=== PATIENT | female | born 1965 ===

== ENCOUNTER → 2021-09-20 13:01 | Outpatient (BNVA) | payer BC, SELFPAY | PROVIDERS: PCP Internal Medicine; Visit Provider Nurse Practitioner Family | DX: Z13.89 Encounter for screening for other disorder (principal) ==

== ENCOUNTER 2021-10-03 09:20 | Outpatient (REF) | payer BC, SELFPAY ==
--- NOTE | ~2021-10-03 | MR_ITS ---
EXAMINATION: MRI OF THE BRAIN WITHOUT CONTRAST CLINICAL INFORMATION: Migraine without aura. COMPARISON: There are no prior studies available for comparison. TECHNIQUE: MRI of the brain was obtained using routine sequences without contrast. FINDINGS: No diffusion abnormalities are identified to suggest an acute or subacute infarct. No mass effect or midline shift is seen. The ventricles and sulci are normal in size. There are a few scattered foci of hyperintense T2 and FLAIR signal in the periventricular subcortical white matter which are nonspecific. No extra-axial fluid collections are seen. The brainstem and cerebellum are normal. No pathologic magnetic susceptibility artifact is identified on the gradient refocused acquisition. The craniovertebral junction, marrow signal, and midline structures are normal. The major intracranial flow-voids at the level of the [place] are preserved. The dural venous sinus flow-voids are maintained. The mastoid air cells and paranasal sinuses are well-aerated. MR/MR head/brain wo con IMPRESSION: 1. There are no acute bleeds or infarcts. No masses are demonstrated. The paranasal sinuses and mastoid air cells are well-aerated. There are a few scattered nonspecific white matter changes.
== END 2021-10-03 09:21 | disposition home or self-care (01) ==
LOC: HO.MRI 09:20
PROVIDERS: Visit Provider Nurse Practitioner Family
DX: G43.009 Migraine without aura, not intractable, without status migrainosus (principal)
CPT/HCPCS: 70551

== ENCOUNTER → 2022-05-04 08:33 | Outpatient (BNVA) | payer BC, SELFPAY | PROVIDERS: PCP Internal Medicine; Visit Provider Nurse Practitioner Family | DX: M54.2 Cervicalgia (principal) ==

== ENCOUNTER 2022-12-27 09:33 | Outpatient (AMB) | payer BC, SELFPAY ==
[2022-12-27 09:37] VITALS: BP 128/82; PULSE 61; O2SAT 97; BMI 25.4
--- NOTE | 2022-12-27 09:37 | A.OFFVIS_ITS ---
Intake Vital Signs 12/27/22 09:37 Height 5 ft 5 in Weight 152 lb 8 oz BMI 25.4 BP 128/82 Blood Pressure Location Rt brachial Position Sitting Pulse 61 Pulse Source Pulse Oximeter Pulse Oximetry (%) 97 Oxygen Delivery Method Room Air Intake Visit Reasons: 4-5m follow up migraines - LVM Intake Note: patient presents for follow up migraines. Patient states my migraines are still the same. I was going to therapy and they stopped so I stopped going but now there back. Allergies No Known Allergies Allergy (Verified 05/04/22 08:42) Medication List - Last Reconciled 12/27/22 by Regi Hensley, CLINIC OFFICE COORDINATOR benzonatate 200 mg PO TID fwxteydtok-hteowltozc-ibz-cod [id number] mg 1 cap PO DAILY PRN fremanezumab-vfrm (Ajovy Syringe) mg subcut levothyroxine 25 mcg PO DAILY propranolol ER 160 mg PO DAILY zolpidem 5 mg PO BEDTIME HPI HPI Comments History of Present Illness Details 57-yr-old female presents for f/u visit. Pt endorses the following interval medical history changes: She suffered a left meniscus tear and underwent surgical repair. She has not been able to exercise in several weeks. She states that her migraine attacks were better after she did PT, however they came back after stopping PT. She wonders about re-trying PT- as she has significant cervical and back tightness. She is currently have 4-5 migraine days per week despite compliance w/ Propranolol and Ajovy. If she is late on her Ajovy by even 2 days, the migraine attacks will worsen. She stopped Mag- not tolerated. She never started Botox. [facility] Surgical History H/O knee surgery H/O: hysterectomy Social History Household Members: Spouse Alcohol intake: never Patient Tobacco Use Status: Never used Tobacco Review of Systems Const All systems reviewed & are unremarkable except as noted in HPI and below Physical Exam Vital Signs: Last Vital Signs Pulse 61 12/27/22 09:37 BP 128/82 12/27/22 09:37 Pulse Ox 97 12/27/22 09:37 Oxygen Delivery Method Room Air 12/27/22 09:37 BMI result Body Mass Index 25.4 Const General: cooperative and no acute distress Orientation/consciousness: patient oriented x3 HEENT Head: Yes normocephalic Resp Effort & Inspection: normal respiratory effort and able to speak in complete sentences Back/Spine/Pelvis Other: Bilateral posterior cervical tightness Neuro General: patient oriented x3, gait normal and CN's II-XI intact bilaterally Cognition (Neuro): normal cognition Motor exam (neuro): 5/5 motor strength present throughout Psych Appearance: grossly normal Mental Status: mental status grossly normal Speech and movement: Normal speech and movement present Affect: normal affect Attitude: cooperative Thought process: Normal thought process present Thought content: Normal thought content present Insight: Good insight present (Psych) Judgement: Good judgement present (Psych) Assessment & Plan Assessment & Plan (1) Chronic migraine without aura: Code(s): G43.709 - Chronic migraine without aura, not intractable, without status migrainosus (2) Cervicalgia: Code(s): M54.2 - Cervicalgia Plan For preventative migraine/headache tx: Continue Propranolol ER 160mg qam, Ajovy 225mg sc month. Start Botox tx for chronic migraine- will f/u on prior auth status. Once Botox tx initiated will trial holding Ajovy. Declines trial of alternate muscle relaxer. Will refer back to PT. Discussed options to try upon PT d/c: private PT sessions, bodyworks massage, soft/mild foam rolling, exercise/stretching/ROM. For acute migraine tx: May continue Fioricet- with goal of reducing to 2 times per week to avoid development of medication adaptations headache.? May continue Advil/Ibuprofen for milder headaches. Previous preventive migraine trials: Amitriptyline- did not tolerate. Topiramate- not tolerated. Mag- not tolerated. Baclofen- not tolerated. Previous acute migraine trials: Sumatriptan- did not tolerate, too sleepy. Rizatriptan- did not tolerate. f/u in 4-5 months or sooner prn. Orders: Orders PT Evaluation and Treatment Today G43.709 - Chronic migraine without aura, not intractable, without status migrainosus, G44.209 - Tension-type headache, unspecified, not intractable, M54.2 - Cervicalgia Coding Level of Care Code Est Pt Level 4 (19042) Diagnoses Chronic migraine without aura G43.709 Cervicalgia M54.2
== END 2022-12-27 10:17 | disposition home or self-care (01) ==
PROVIDERS: Visit Provider Nurse Practitioner Family
DX: G43.709 Chronic migraine without aura, not intractable, without status migrainosus (principal); M54.2 Cervicalgia
CPT/HCPCS: 99214

== ENCOUNTER → 2022-12-27 09:33 | Outpatient (BNVA) | payer BC, SELFPAY | PROVIDERS: Visit Provider Nurse Practitioner Family ==

== ENCOUNTER 2023-09-23 08:00 | Outpatient (AMB) | payer BC, SELFPAY ==
--- NOTE | 2023-09-23 08:01 | A.OFFVIS_ITS ---
Intake Visit Reasons: f/u appt per [facility] Intake Note: Patient following up on headaches. patient has been having extreme headaches for the past coupled weelks Allergies No Known Allergies Allergy (Verified 09/23/23 08:01) Medication List - Last Reconciled 09/23/23 by Regi Hensley, IMAGING MANAGER benzonatate 200 mg PO TID kmqfeailny-ybixkipegt-eou-cod [id number] mg 1 cap PO DAILY PRN fremanezumab-vfrm (Ajovy Syringe) mg subcut levothyroxine 25 mcg PO DAILY onabotulinumtoxinA (Botox) 200 units IM ONCE 12 weeks propranolol ER 160 mg PO DAILY zolpidem 5 mg PO BEDTIME HPI Comments Details: 57-yr-old female presents for f/u televideo visit via [employer]. Pt denies any significant interval medical changes. She never started Botox- is hesitant about the number of injections needed for this tx. Pt reports that in the last few months, she is having a near daily headache. She is having 2 migraine days per week. In the last month, she has had to leave work for a migraine attack. The Ajovy helps in the x's 10 days after her injection. She is compliant w/ Propranolol ER 160mg qd. She is using Fioricet prn- more recently has been causing GI upset. Last time she took this was > 1 week ago. Taking Advil 3 days per week. Baseline headache characteristics: Prodrome symptoms: No known s/s. Aura: None Headache: Headache is bifrontal and crown of head. Pain is throbbing and aching. Rates pain as 8-10/10. Recently has started waking w/ FABIAN in the middle of the night. Associated symptoms? Photophobia, nausea, dizziness at times. No focal weakness or autonomic s/s. Postdrome: Exhaustion- usually feels better after sleeping. PFSH Surgical History H/O: hysterectomy H/O knee surgery Social History Household Members: Spouse Alcohol intake: never Patient Tobacco Use Status: Never used Tobacco Physical Exam Const General: cooperative and no acute distress Orientation/consciousness: patient oriented x3 Resp Effort & Inspection: normal respiratory effort and able to speak in complete sentences Neuro General: patient oriented x3 Cognition (Neuro): normal cognition Psych Appearance: grossly normal Mental Status: mental status grossly normal Speech and movement: Normal speech and movement present Affect: normal affect Attitude: cooperative Telehealth Telehealth Telehealth Platform: [facility] Location of provider rendering services: practice address Location of patient: address on file Patient Identification confirmed using: Name, : Yes Telehealth method: voice only Patient verbally consented to treatment: Yes Patient verbally consented to billing insurance company: Yes Patient informed of any privacy concerns related to visit: Yes Minutes spent on Phone/Video with Pt.: 23 Assessment & Plan Assessment & Plan (1) Chronic migraine without aura: Code(s): G43.709 - Chronic migraine without aura, not intractable, without status migrainosus Category: Medical (2) TTH (tension-type headache): Code(s): G44.209 - Tension-type headache, unspecified, not intractable Category: Medical Plan Track Headaches and migraines. For preventative migraine/headache tx: Stop Botox- pt is hesitant to try Botox. Continue Propranolol ER 160mg qam. Continue Ajovy 225mg sc month for now. Start Qulipta 30mg qhs- will initiate prior auth. Once Qulipta tx initiated will stop Ajovy. Trial Nerivio 45 min neurostimulation qod- and may use qd prn. Previous preventive migraine trials: Amitriptyline- did not tolerate. Topiramate- not tolerated. Mag- not tolerated. Baclofen- not tolerated. ? For acute migraine tx: Stop Fioricet. Trial Nurtec ODT 75mg qd prn. May continue Advil/Ibuprofen for milder headaches. Previous acute migraine trials: Sumatriptan- did not tolerate, too sleepy. Rizatriptan- did not tolerate. Future considerations- anti-emetic- pt declines today. ? f/u in 3 months or sooner prn. Medications: New atogepant (Qulipta) 30 mg PO DAILY 30 days 30 tabs 6RF rimegepant (Nurtec ODT) 75 mg PO ONCE 30 days PRN 16 tabs 3RF migraine headache MDD 1 tab Discontinued onabotulinumtoxinA (Botox) inject 155 units IM across forehead, scalp, and neck Discontinued Reason: Doctor's Order 200 units IM ONCE 12 weeks 1 ea 3RF G43.709 - Chronic migraine without aura, not intractable, without status migrainosus Coding Level of Care Code Tele Est Pt Level 4 (32009) Diagnoses Chronic migraine without aura G43.709 TTH (tension-type headache) G44.209
== END 2023-09-23 09:29 | disposition home or self-care (01) ==
LOC: HO.HSMS 08:00
PROVIDERS: PCP Internal Medicine; Visit Provider Nurse Practitioner Family
DX: G43.709 Chronic migraine without aura, not intractable, without status migrainosus (principal); G44.209 Tension-type headache, unspecified, not intractable
CPT/HCPCS: 99443

== ENCOUNTER → 2023-09-23 08:00 | Outpatient (BNVA) | payer BC, SELFPAY | PROVIDERS: PCP Internal Medicine; Visit Provider Nurse Practitioner Family ==